=== PATIENT | female | born 1960 | race Caucasian/White ===

== ENCOUNTER 2020-02-27 07:05 | Day surgery (SDC) | payer MEDICAID ==
[2020-02-24 11:25] LABS: BASOPHILS 0.3 % (0-2); HEMATOCRIT 34.1 % (36.0-48.0); HEMOGLOBIN 10.8 g/dL (12-16); IMMATURE GRANULOCYTES 0.2 % (0-5); LYMPHOCYTES 33.8 % (15-50); MCH 27.8 pg (26.0-34.0); MCHC 31.7 g/dL (31.0-37.0); MCV 87.9 fL (80.0-100.0); MEAN PLATELET VOLUME 11.7 fL (7.4-10.4); MONOCYTES 6.1 % (2-11); NEUTROPHILS 47.6 % (40-80); RBC 3.88 10x6/uL (4.00-5.40); RDW 15.2 % (11.5-14.5); WBC 6.3 10x3/uL (4.8-10.8)
[2020-02-24 11:31] LABS: UDS - AMPHET NEGATIVE QUAL (NEGATIVE); UDS - BARB NEGATIVE QUAL (NEGATIVE); UDS - BENZO NEGATIVE QUAL (NEGATIVE); UDS - COCAINE NEGATIVE QUAL (NEGATIVE); UDS - OPIATE NEGATIVE QUAL (NEGATIVE); UDS - PCP NEGATIVE QUAL (NEGATIVE); UDS - THC NEGATIVE QUAL (NEGATIVE)
[2020-02-24 11:34] LABS: CALC OSMOLALITY 271 mosm/kg (275-300); CALCIUM 9.6 mg/dL (8.5-10.1); CARBON DIOXIDE 30.2 mmol/L (21.0-32.0); CHLORIDE - SERUM 97 mmol/L (98-107); CREATININE - SERUM 0.8 mg/dL (0.6-1.3); POTASSIUM - SERUM 4.4 mmol/L (3.5-5.1); SODIUM 134 mmol/L (136-145); UREA NITROGEN 10 mg/dL (7-18); eGFR NON AFRICAN AMERICAN 78 mL/min (90-120)
[2020-02-24 11:41] LABS: GLUCOSE 191 mg/dL (74-106)
[2020-02-24 11:48] LABS: PLATELET COUNT 130 10x3/uL (130-400)
[~2020-02-27] VITALS: Ht 157.5 cm; Wt 62.6 kg
[2020-02-27] VITALS (10 sets, daily range): BP systolic 133–176; BP diastolic 66–81; Ht 157.5 cm; Wt 62.6 kg
[~2020-02-27 07:05] MED LIST: AMITRIPTYLINE100 MG PO; BACTRIM DS TABL1 TAB PO; CYCLOBENZAPRINE10 MG PO; GABAPENTIN300 MG PO; GLUCOPHAGE850 MG PO; HYDROCODON-ACE1 EAC7 PO; IMITREX100 MG PO; IRON PO; JANUMET XR 50-1 EACH PO; LISINOPRIL5 MG PO; MACROBID100 MG PO; MAGNESIUM GLUC500 M1 PO; METOPROLOL TART50 MG PO; OMEPRAZOLE40 MG PO; PEPCID20 MG PO; PRAVACHOL20 MG PO; SAVELLA25 MG PO; TOPROL XL50 MG PO
--- NOTE | 2020-02-27 12:15 | NUR ---
RECIEVED TO ROOM FROM RECOVERY BY LILLIAM, PATIENT IS ABLE TO TRANSFER SELF TO ROOM BED, SHE IS SLIGHTLY DROWSY BUT ABLE TO FOLLOW VERBAL COMMANDS. RATES PAIN AT 4/10 AT THIS TIME. IV TO RIGHT AC WITH LR INFUSING PER ORDERS. SCD'S BILAT. ABDOMEN SOFT TOUCH, KWOK CATH TO BEDSIDE DRAIN WITH 300ML NOTED TO COLLECTION CANISTER. O2 SAT 94% ON 2LNC, CALL LIGHT IN REACH WITH SIDE RAILS UP X 2. SIG OTHER AT BEDSIDE.
--- NOTE | 2020-02-27 12:26 | NUR ---
DILAUDID PRODUCTION SERVICE MANAGER STARTED. LOADING DOSE GIVEN DUE TO PT C/O PAIN AT 5/10. SHE IS GIVEN VERBLA INSTRUCTIONS ON USE, PRODUCTION SERVICE MANAGER BUTTON IN PT HAND.
--- NOTE | 2020-02-27 13:30 | NUR ---
CALL LIGHT ANSWERED, PT C/O THAT SHE NEEDS TO GET UP TO BATHROOM, REMINDED HER THAT SHE HAS KWOK IN PLACE, CHECKED TO MAKE SURE DRAINING, 200ML NOTED TO TANYA HE. TURNED TO HER RIGHT SIDE, RATES PAIN AT 3/10. CALL LIGHT IN REACH.
--- NOTE | 2020-02-27 14:15 | NUR ---
REENFORCED TEACHING ON USE OF COVERER, PT RATES HER PAIN AT 5/10. REPOSITIONED TO HER BACK REQUESTED. SMALL PILLOW GIVEN AND SHOWN HOW TO USE WHEN COUGHING. CALL LIGHT IN REACH.
--- NOTE | 2020-02-27 15:00 | NUR ---
NEUROTIN GIVEN ORDERED. PT RESTING TILTED TO HER LEFT SIDE, RATES PAIN AT 3/10. KWOK CATH WITH 200ML CLEAR BLUISH URINE NOTED. SIG OTHER AT BEDSIDE, SIDE RAILS UP X 2 WITH CALL LIGHT IN REACH.
--- NOTE | 2020-02-27 16:12 | NUR ---
C/O NAUSEA AFTER USING ENVIRONMENTAL SAFETY SPECIALIST, OFFERED MAGDY AND LUPILLO AND SHE IS AGREEABLE, ALSO TILTED TO HER RIGHT SIDE. LIGHTS TURNED DOWN, CALL LIGHT IN REACH
--- NOTE | 2020-02-27 17:45 | NUR ---
THIS NURSE IN ROOM- FSBS 295.
--- NOTE | 2020-02-27 17:49 | NUR ---
PT CO NAUSEA AND DOES NOT WANT PERCOCET- PERCOCET RETURNED TO PIXIS.
--- NOTE | 2020-02-27 18:00 | NUR ---
DR NEW CALLED AND REPORT GIVEN OF PT CONTINUE NAUSEA WHEN DIRECTOR BUSINESS SYSTEMS IS USED, ZOFRAN ORDERED. ALSO REPORTED THAT PT TAKES METFORMIN FOR TYPE 2 DIABETES AND FSBS IS 295. START SLIDING SCALE INTERMEDIATE PER PROTOCOL. CONTINUE IV FLUIDS BUT CHANGE TO NS AT 125ML/HR. GIVE PO PERCOCET FOR PAIN ONCE NAUSEA IS BETTER. PT UNDERSTANDS THIS PLAN OF CARE AND DENIES CONCERNS. CALL LIGHT IN REACH.
--- NOTE | 2020-02-27 19:29 | NUR ---
PT REC'D IN BED AT THIS TIME. COMPLAINS OF MILD NAUSEA AT THIS TIME. ICE PACK TO THE BACK OF THE NECK FOR COMFORT. PT MEDICATED FOR PAIN LEVEL OF 5/10. KWOK CATH DRAINING CLEAR YELLOW URINE.SCDS IN PLACE. NO DISTRESS NOTED. NS INFUSING AT 125 ML/HR TO THE RT AC. CALL LIGHT IN EASY REACH. Jovany SRIVASTAVA RN
--- NOTE | 2020-02-27 20:32 | NUR ---
FSBS 298. 10 UNITS OF REGR INULIN GIVEN AT THIS TIME. Jovany SRIVASTAVA RN
--- NOTE | 2020-02-27 20:49 | NUR ---
DR NEW CALLED AT THIS TIME. REPORTED ELEVATED PRESSURE AT BEGINNING OF SHIFT AND CURRENT PRESSURE. INFORMED MD THAT PATIENT ONLY TOOK ONE BLOOD PRESSURE THIS AM PRIOR TO SURGERY. ORDER REC'D TO START METOPROLOL 50 PO BID. ORDER CLARIFIED REGARDING FREQUENCY OF FSBS. ORDER REC'D TO FO FSBS 2 HOURS POSTPRANDIAL. Jovany SRIVASTAVA RN
--- NOTE | 2020-02-27 21:22 | NUR ---
LOPRESSOR AND NEURONTIN GIVEN AT THIS TIME. Jovany SRIVASTAVA RN
--- NOTE | 2020-02-27 22:30 | NUR ---
PT REQUESTING CRACKERS AT THIS TIME. ROMAN RACKERS GIVEN AT THIS TIME. WILL CONTINUE TO MONITOR. Jovany SRIVASTAVA RN
[2020-02-28 00:05] VITALS: BP 151/75
--- NOTE | 2020-02-28 00:05 | NUR ---
VSS. PT MEDICATED FOR PAIN OF 5/10. WILL MONITOR. Jovany SRIVASTAVA RN
--- NOTE | 2020-02-28 01:12 | NUR ---
PT REC'D IN BED RESTING WITH EYES CLOSED. DID NOT AWAKEN. Jovany SRIVASTAVA, RN
--- NOTE | 2020-02-28 01:55 | NUR ---
PT COMPLAINS OF HEADACHE AT THIS TIME. ICE PACK GIVEN FOR COMFORT. Jovany SRIVASTAVA RN
--- NOTE | 2020-02-28 02:44 | NUR ---
PT CONTINUES TO COMPLAINS OF HEADACHE. PT STATES THAT SHE HAD MIGRAINES. DR NEW CALLED AND ORDER REC'D FOR IMITREX 100 MG PO DAILY PRN. SECURITY SOLUTIONS ENGINEER NOTIFIED REGARDING NEW ORDER. Jovany SRIVASTAVA RN
--- NOTE | 2020-02-28 02:44 | NUR ---
iv site converted to saline loc, tubing and dsg removed, sl applied and flushes well, tolerated well, continues to c/o migraine type headache, states ice pack to forehead is keeping it from getting worse but not feeling any relief
[2020-02-28 04:17] VITALS: BP 148/68
--- NOTE | 2020-02-28 04:17 | NUR ---
PT REC'D IN BED AT THIS TIME. VSS. MEDICATED WITH IMITRES FOR MIGRAIND. WILL MONITOR. PT STATES THAT SHE IS PASSING GAS AND IS HUNGRY THIS AM. FOOD OFFERED BUT PT REFUSED AT THIS TIME. Jovany SRIVASTAVA RN
--- NOTE | 2020-02-28 06:25 | NUR ---
FSBS THIS AM 191. PT REQUESTING WARM TEA THIS AM. NO DISTRESS NOTED. NO VOMITING THIS SHIFT. Jovany SRIVASTAVA RN
--- NOTE | 2020-02-28 08:02 | NUR ---
SITTING IN HIGH FOWLERS POSITION. PREPARING TO EAT BREAKFAST TRAY. 4 UNITS REGULAR INSULIN GIVEN. PT INSTRUCTED TO NOTIFY STAFF WHEN FINISHED WITH BREAKFAST, VERBALIZES UNDERSTANDING. C/O PERINEAL PRESSURE/DISCOMFORT AND MEDICATED PER EMAR. ICE WATER PROVIDED, NO VAG BLEEDING NOTED. BED IN LOW POSITION WITH SRUP X2. CALL LIGHT AND PHONE WITHIN REACH. SCD'S ON BLE. WILL CONTINUE TO MONITOR.
--- NOTE | 2020-02-28 08:19 | NUR ---
REPORTS BEING FINISHED WITH BREAKFAST TRAY. DENIES NEEDS AT THIS TIME. LIGHTS OFF PER PT REQUEST.
--- NOTE | 2020-02-28 09:24 | NUR ---
C/O DIZZINESS AND REQUESTS INTERVENTION. REPORT TO DR. CARO ABOUT C/O DIZZINESS AND FSBS READING. REPORT ON INTEREVENTIONS GIVEN AND SSI. ORDERS REC'D.
--- NOTE | 2020-02-28 11:48 | NUR ---
CALLS VIA CALL LIGHT. UP TO BR. VOIDED 25 MLS. PAD AND PANTIES PROVIDED. ORAL CARE DONE PER PT. STEADY GAIT NOTED, DENIES DIZZINESS. BACK TO BED. BED IN LOW POSITION, CALL LIGHT AND PHONE WITHIN REACH. WILL CONTINUE TO MONITOR. SPOUSE AT BEDSIDE, SUPPORTIVE AND ATTENTIVE TO PT.
--- NOTE | 2020-02-28 13:24 | NUR ---
VOIDED 100 MLS. BLADDER SCAN COMPLETED WITH 261 MLS RESIDUAL. REPORT CALLED TO DR. CARO. ORDERS REC'D TO I&O CATH AND GIVE SS REGULAR INSULIN NOW PER BLOOD SUGAR.
--- NOTE | 2020-02-28 14:02 | NUR ---
FSBS 221. 8 UNIT REGULAR INSULIN GIVEN PER ORDER. PT UPDATED ON POC CHANGES, VERBALIZES UNDERSTANDING. INSTRUCTED ON I&O CATH PROCEDURE, VERBALIZES UNDERSTANDING.
--- NOTE | 2020-02-28 14:16 | NUR ---
I&O CATH DONE USING STERILE TECHNIQUE. IMMEDIATE RETURN OF 525 MLS, LIGHT GREEN TINGED URINE. CRISTI CARE DONE, PAD CHANGED WITH SCANT BRB NOTED. PANTIES PROVIDED. LIGHTS OFF PER REQUEST. PT PASSED FLATUS. DENIES PAIN AND NEEDS. BED IN LOW POSITION, CALL LIGHT AND PHONE WITHIN REACH. SRUP X2.
--- NOTE | 2020-02-28 16:23 | NUR ---
CALLS VIA CALL LIGHT, REPORTS THAT SHE FELT URGE TO VOID AND WENT TO BR. VOIDED 140 MLS IN HAT. DENIES FEELING URGE TO VOID. BLADDER SCAN COMPLETED WITH 431 MLS RESIDUAL NOTED. REPORTS THAT SHE FEELS "OFF, NOT REALLY NAUSEATED JUST NATHALIA SICK A LITTLE." FSBS CHECKED WITH READING OF 176. WILL NOTIFY DR. CARO.
--- NOTE | 2020-02-28 16:47 | NUR ---
REPORT CALLED TO DR. CARO REGARDING FSBS AND RESIDUAL OF 431 MLS. ORDERS REC'D TO DISCUSS D/C'ING WITH KWOK AND F/U IN PFW IN 2 DAYS OR STAYING OVERNIGHT WITH URECHOLINE Q6H AND ATTEMPTING BLADDER TRAINING TOMORROW AM.
--- NOTE | 2020-02-28 17:00 | NUR ---
RN TO BEDSIDE. MEDS GIVEN PER EMAR. EATING EVENING MEAL AT THIS TIME. DISCUSSED OPTIONS WITH PT REGARDING D/C'ING HOME WITH SUNDAR IN TONIGHT AND FOLLOWING UP WITH DR. CARO ON THURSDAY OR STAYING OVERNIGHT ON URECHOLINE Q6H AND ATTEMPTING TO BLADDER TRAIN TOMORROW AM SHIFT. PT OPTS TO STAY OVERNIGHT AT THIS TIME.
[2020-02-28 17:03] VITALS: BP 144/68
--- NOTE | 2020-02-28 18:16 | NUR ---
[address] USING STERILE TECHNIQUE. TOLERATED WELL. IMMEDIATE RETURN OF CLEAR LIGHT YELLOW URINE NOTED. KWOK CLAMPED FOLLOW 325 MLS RETURNED FOR 3 MINUTES THEN UNCLAMPED. 800 MLS TOTAL RETURNED TO KWOK. EDUCATED URECHOLINE AND POC. VERBALIZES UNDERSTANDING AND DENIES QUESTIONS. BED IN LOW POSITION WITH SRUP X2. CALL LIGHT AND PHONE WITHIN REACH.
--- NOTE | 2020-02-28 20:00 | NUR ---
AT BEDSIDE, PT REQUEST LIGHTS TO BE OFF, LIGHTS DIMMED FOR COMFORT FOLLOWING EMPTYING OF KWOK BAG, DENIES NAUSEA FOLLOWING ADMIN OF ZOFRAN EARLIER
--- NOTE | 2020-02-28 21:30 | NUR ---
FSBS 141, ASSESSMENT COMPLETED, SEE ASSESSMENT FLOW SHEET, HS MEDS GIVEN ORDERED, VSS, ABD SOFT BLADDAR NON DISTENDED, PT CONTINUES TO C/O BLADDAR SPASM TYPE DISCOMFORT, KWOK TUBING ADJUSTED. PT FEELING RELIEF, NO FURTHER NEEDS VOICED
[2020-02-28 21:35] VITALS: BP 157/65
--- NOTE | 2020-02-28 23:45 | NUR ---
pt resting quietly w/o signs of distress, respirations deep and unlabored, awakens to name called, admin meds as scheduled then pt quickly returns to rest w/ eyes closed.
--- NOTE | 2020-02-29 01:57 | NUR ---
resting quielty, w/o signs of distress, respirations deep and unlabored, did not disturb
--- NOTE | 2020-02-29 03:58 | NUR ---
continues to rest quietly, supine position. shay to drainage. did not disturb
--- NOTE | 2020-02-29 05:48 | NUR ---
to bedside for am meds. pt resting quielty w/o signs of distress, arouses easily, remains sl drowsy. no needs voiced. shay emptied 1800ml clear yellow urine
--- NOTE | 2020-02-29 07:17 | NUR ---
RECEIVED PT SEMI FOWLERS POSITION. WAKES EASILY UPON ENTERING ROOM. VITAL SIGNS NOTED. HRRR, BBS CLEAR AND EQUAL. BOWEL SOUNDS ACTIVE ALL 4 QUADRANTS. ABDOMEN SOFT NON-DISTENDED. THREE LAP INCISIONS WELL APPROXIMATED. NO DRAINAGE SWELLING OR REDNESS NOTED TO INCISIONS. PT DENIES PASSING GAS AT THIS TIME. PPP. NO EDEMA NOTED TO EXTREMITIES. PT COMPLAINS OF ABDOMINAL CRAMPING "4" ON 0-10 PAIN SCALE. KWOK CATHETER DRAINIG TO GRAVITY WITH CLEAR YELLOW URINE NOTED IN BAG. SRX2. BED LOCKED IN LOW POSITION.
[2020-02-29 07:19] VITALS: BP 166/75
--- NOTE | 2020-02-29 07:37 | NUR ---
FSBS 175
--- NOTE | 2020-02-29 07:46 | NUR ---
MOTRIN 800 MG GIVEN PO FOR PT'S C/O PAIN.
--- NOTE | 2020-02-29 08:50 | NUR ---
PT C/O NAUSEA. ZOFRAN ODT 4 MG GIVEN PO ORDERED.
--- NOTE | 2020-02-29 09:36 | NUR ---
DR CARO ON UNIT. ORDERS RECEIVED.
--- NOTE | 2020-02-29 10:27 | NUR ---
PT CONSUMES 1/2 OF CHEERIOS. STATES NAUSEA GONE. DENIES PAIN. SCDS BACK ON. PT STATES "I THOUGHT I HAD TO HAVE A BOWEL MOVEMENT, BUT DIDN'T".
--- NOTE | 2020-02-29 11:39 | NUR ---
SUNDAR DC'D WITH 550 ML OF CLEAR, YELLOW URINE NOTED IN BAG. PT OOB AND SITS ON COUCH FOR MEAL. RICHARD ACTIVITY WELL.
--- NOTE | 2020-02-29 13:31 | NUR ---
PT CENTRIFUGE SEPARATOR TENDER LIGHT REQUESTS SHOWER. TOWELS AND SOAP GIVEN. PT AMBULATORY. LINENS CHANGED.
--- NOTE | 2020-02-29 14:30 | NUR ---
PT VOIDS 125 ML OF CLOUDY, YELLOW URINE. DR CARO NOTIFIED. STATES TO CATH PT WITH KWOK AND LEAVE IN IF MORE THAN 100 ML POST VOID RESIDUAL.
--- NOTE | 2020-02-29 14:40 | NUR ---
16 WOLOF KWOK CATHETER PLACED USING STERILE TECNIQUE. 60 ML RESIDUAL NOTED.
--- NOTE | 2020-02-29 14:50 | NUR ---
DR CARO NOTIFIED OF 60 ML RESIDUAL POST VOID. ORDER RECEIVED TO MD HOME.
--- NOTE | 2020-02-29 15:00 | NUR ---
SALINE LOCK DC'D. CATHETER TIP INTACT. PRESSURE BANDAGE TO SITE.
[2020-02-29] MEDS ORDERED: GABAPENTIN100 MG PO (15:01)
[2020-02-29] MEDS ORDERED: PERCOCET 7.5/321 TAB PO (15:02)
--- NOTE | 2020-02-29 15:05 | NUR ---
KWOK DC'D. 60 MLS NOTED IN BAG. PT TOLERATES WELL.
--- NOTE | 2020-02-29 15:20 | NUR ---
DISCHARGE INSTRUCTIONS GIVEN TO PT. PT VERBALIZES UNDERSTANDING OF ALL INSTRUCTIONS. COPIES GIVEN TO PT. PT GIVEN RX YESTERDAY. PT STATES FILLED RX TODAY AND HAS AT HOME. PT READY FOR DISCHARGE.
--- NOTE | 2020-02-29 15:30 | NUR ---
PT READY FOR DISCHARGE. DISCHARGED IN STABLE CONDITION VIA WHEELCHAIR TO PRIVATE VEHICLE.
--- NOTE | 2020-03-07 06:20 | OP ---
PATIENT NAME: RADHA LOWE MEDICAL RECORD: [id number] :62 LOCATION:[facility] ADMISSION DATE: SURGEON: HERMELINDO CARO MD DATE OF OPERATION: 02/27/2020 PREOPERATIVE DIAGNOSIS: Pelvic organ prolapse. POSTOPERATIVE DIAGNOSIS: Pelvic organ prolapse. PROCEDURES: 1. Diagnostic laparoscopy. 2. Laparoscopically assisted vaginal hysterectomy with modified Diaz's. 3. Bilateral salpingo-oophorectomy. 4. Anterior colporrhaphy. SURGEON: Hermelindo Caro MD ANESTHESIOLOGIST: Dr. Scott. ANESTHETIC: General. FINDINGS: Uterus with third degree prolapse and a second-degree cystocele was present. Unremarkable tubes and ovaries with Hulka clips present. Cysto was unremarkable. SPECIMENS REMOVED: Uterus with cervix, bilateral tubes and ovaries. SPECIMEN DISPOSITION: Pathology. ESTIMATED BLOOD LOSS: 150 cc. FLUIDS: 1500 cc lactated Ringer's. URINE OUTPUT: 150 cc of clear urine. COMPLICATIONS: None. DRAINS: Manrique to gravity. INDICATIONS: The patient is a 60-year-old female with lower back pain and bulge at vagina. On exam, the patient is noted to have an uterine prolapse along with anterior defect. The patient is consented for a LAVH with possible uterine vault suspension and anterior colporrhaphy. DESCRIPTION OF PROCEDURE: After informed consent was assured, the patient was taken to the operating room where anesthetic was obtained. The patient was placed in Sae stirrups and prepped and draped in the usual sterile fashion. Attention was directed to the vagina where a uterine manipulator was placed. Trocars were now placed at the infraumbilical site and accessory ports were placed in the right and left lower quadrants. Through the primary port, a camera was inserted after developing pneumoperitoneum. Visualization of the pelvis with the above findings. Beginning on the right side, the right tube and ovary was elevated and the Thunderbeat coagulation cutter was used to compress, coagulate, and separate the infundibulopelvic ligament. Dissection was carried out underneath the ovary in the right tube. Dissection was carried further OPERATIVE REPORT [id number] RADHA LOWE across the round ligament and anterior leaf of the broad ligament was opened. Bladder flap was developed in the midline. The posterior leaf was now opened and the vessels of the right side skeletonized, compressed, and coagulated. Attention was now directed to the left side. Then, in like manner, the left ovary and tube was elevated and using the Thunderbeat coagulation cutter, the IP is compressed, coagulated, and . The dissection was carried out. The left tube and ovary across the round ligament and anterior leaf of the broad ligament was opened and fully developed into the bladder flap. Posteriorly, the tissue was dissected free of the vascular bundle of the left which is identified and compressed and coagulated at the level of the internal os. Attention was now directed to the vagina. With the sheath covering the laparoscopic ports and the legs properly positioned, a weighted speculum was introduced in the vagina. The cervix was visualized, grasped with Godfrey tenaculum and placed on gentle traction. The cervix was now circumferentially injected with 0.5% lidocaine solution with epinephrine. Using Bovie cautery starting anteriorly at the reflection of the bladder, the vaginal mucosa was incised with coag through a reverse chevron at the posterior cul-de-sac. This is followed by entry into the posterior space with Jiang scissors. The peritoneum was tagged to the mucosa and a long-billed weighted speculum was introduced. Using a Ismael-[place]dun[place] clamps, the uterosacral ligaments were isolated on both right and left side, mobilized with scissors and stick tied and held with hemostats. Anteriorly, the dissection was carried out further using Bovie cautery until the anterior pouch was identified and entered. A Lucerne retractor was placed in the space. Using Ismael-[place] clamps, the remaining portion of the cardinal ligament was serially clamped, cut and tied until the uterus, ovaries and tubes were removed. Once this has been performed, the cuff was closed in anterior to posterior fashion. At the level of the uterosacral ligaments, a stitch was passed from the posterior cuff through both ligaments and back out through the posterior cuff to be tagged and to be tied later in the close. The uterosacral ligaments were plicated in the midline and the mucosa was closed over this. The aforementioned stitch that was passed through the posterior cuff was secured in this way, securing support of the vagina to the uterosacral ligaments. The anterior space was now injected with 0.5% lidocaine and epinephrine solution. The mucosa was opened and dissected free of the underlying tissues with both Metzenbaum scissors and cottonoid blunt dissection. Once the endopelvic fascia was identified imbricating stitches were placed posterior and anteriorly eliminating the central defect. The space was inspected and found to have adequate hemostasis. The mucosa anteriorly was now trimmed and closed with Vicryl stitch. The cystoscopy was now performed with a 70-degree cystoscope. Bladder mucosa was inspected and found to be intact with no signs of trauma. Both ureteral orifices were visualized with good efflux of urine. Manrique catheter was now restarted. Vaginal packing placed. Pneumoperitoneum was reestablished and visualization of the lower pelvis reveals adequate hemostasis. The pelvis was copiously irrigated, irrigant removed and pneumoperitoneum released. As accessory trocars were removed. Primary trocars removed. All sites were closed with a subcuticular stitch. Sponge, lap, and needle counts correct times 2. The patient was awakened and went to the recovery area in stable condition. TRANSINT:[id number] Voice Confirmation ID: [id number] DOCUMENT ID: [id number] OPERATIVE REPORT [id number] RADHA LOWE,HERMELINDO Benavidez MD at 0620 CC: [id number] DICTATION DATE: 03/06/2028 DIVE SUPERVISOR: 03/06/20 1322 [facility] 02/29/20 [facility] [address] [place] [address]
== END 2020-02-29 15:30 | disposition home or self-care (01) ==
LOC: D.LD 07:05 → D.OPS 07:05 → D.PAN 09:00 → D.LD 11:12 → D.OPS 02-29 15:30
PROVIDERS: ATTEND Obstetrics & Gynecology
DX: N81.4 Uterovaginal prolapse, unspecified (principal); N39.3 Stress incontinence (female) (male); N39.46 Mixed incontinence; N81.11 Cystocele, midline

== ENCOUNTER → 2020-11-02 21:47 | Outpatient (CLI) | payer BC ==
[2020-02-27 07:28] VITALS: BMI 25.3
[~2020-11-02 21:47] MED LIST changes: +GABAPENTIN100 MG PO; +PERCOCET 7.5/321 TAB PO
== END | disposition home or self-care (01) ==
LOC: D.MAMMO 14:00
PROVIDERS: ATTEND Family Medicine
DX: Z12.31 Encounter for screening mammogram for malignant neoplasm of breast (principal)